=== PATIENT | male | born 2000 | race Caucasian/White ===

== ENCOUNTER → 2020-04-24 | Outpatient (CLI) | payer OTHER ==
--- NOTE | 2020-04-24 16:53 | KCIC ---
EXAM: LEFT TIBIA/FIBULA 2 VIEWS. HISTORY: Lower tibial pain after running. COMPARISON: None. FINDINGS: A focus of sclerosis and periosteal reaction along the distal tibial metadiaphysis is consistent with a developing stress lesion. No fracture line is identified. No underlying suspicious lesion is seen. The joint spaces and alignment of the knee and ankle are grossly maintained. IMPRESSION: 1. Developing stress lesion along the distal tibial metadiaphysis. Ongoing follow-up/management to resolution is recommended. Electronically signed by: Isabell Marrero MD (04/24/2020 4:50 PM) [facility]
== END | disposition home or self-care (01) ==
LOC: KCIC 14:01
PROVIDERS: ATTEND Nurse Practitioner Gerontology
DX: M89.8X6 Other specified disorders of bone, lower leg (principal)
CPT/HCPCS: 73590